=== PATIENT | male | born 1980 | race Caucasian/White ===

== ENCOUNTER 2023-03-15 23:54 | Emergency (ER) | payer SELFPAY ==
[~2023-03-15] VITALS: Ht 167.6 cm; Wt 91.0 kg
[2023-03-15 23:57] VITALS: BP 115/91
== END 2023-03-16 01:29 | disposition home or self-care (01) ==
LOC: ER 23:54
DX: R11.2 Nausea with vomiting, unspecified (principal); T51.0X1A Toxic effect of ethanol, accidental (unintentional), initial encounter; Y92.89 Other specified places as the place of occurrence of the external cause
CPT/HCPCS: 99283